=== PATIENT | female | born 1965 | race African-American/Black ===

== ENCOUNTER 2020-06-12 15:49 | Emergency (ER) | payer OTHER ==
[2020-06-12 22:35] LABS: SARS-CoV-2 MS2 Positive; SARS-CoV-2 N Gene Negative; SARS-CoV-2 S Gene Negative; SARS-CoV-2 by NAA Not Detected (NotDetected); SARS-CoV-2 orf1ab Negative
== END 2020-06-12 16:19 | disposition home or self-care (01) ==
LOC: ERS 15:49
DX: R05 Cough (principal); Z20.828 Contact with and (suspected) exposure to other viral communicable diseases; I10 Essential (primary) hypertension; E11.9 Type 2 diabetes mellitus without complications; E78.5 Hyperlipidemia, unspecified
CPT/HCPCS: 87635; 99283; U0003